=== PATIENT | female | born 1960 | race Caucasian/White ===

== ENCOUNTER → 2017-04-02 08:05 | Outpatient (CLI) | payer BC | END | disposition home or self-care (01) | LOC: D.US 08:05 | DX: K76.0 Fatty (change of) liver, not elsewhere classified (principal); R93.8 Abnormal findings on diagnostic imaging of other specified body structures ==

== ENCOUNTER → 2017-04-03 08:50 | Outpatient (CLI) | payer BC ==
[2017-04-02 08:44] LABS: BILIRUBIN - INDIRECT 0.27 mg/dL (0.00-1.00); BILIRUBIN - TOTAL 0.32 mg/dL (0.2-1.3); PROTEIN - SERUM 7.7 g/dL (6.4-8.2)
[2017-04-02 08:46] LABS: BILIRUBIN - DIRECT 0.05 mg/dL (0.00-0.30)
== END | disposition home or self-care (01) ==
LOC: D.MRI 08:50
PROVIDERS: Internal Medicine Gastroenterology
DX: R93.8 Abnormal findings on diagnostic imaging of other specified body structures (principal); R10.30 Lower abdominal pain, unspecified

== ENCOUNTER → 2017-07-01 07:38 | Outpatient (CLI) | payer BC | END | disposition home or self-care (01) | LOC: D.MRI 07:38 | DX: K76.9 Liver disease, unspecified (principal); R93.8 Abnormal findings on diagnostic imaging of other specified body structures ==

== ENCOUNTER → 2017-12-24 08:21 | Outpatient (CLI) | payer BC | END | disposition home or self-care (01) | LOC: D.MRI 08:21 | DX: R93.89 Abnormal findings on diagnostic imaging of other specified body structures (principal); K76.89 Other specified diseases of liver; K58.9 Irritable bowel syndrome, unspecified; R12 Heartburn ==

== ENCOUNTER → 2018-01-02 08:08 | Outpatient (CLI) | payer BC | END | disposition home or self-care (01) | LOC: D.MRI 08:00 | DX: R93.89 Abnormal findings on diagnostic imaging of other specified body structures (principal); K76.9 Liver disease, unspecified ==

== ENCOUNTER → 2019-01-01 07:57 | Outpatient (CLI) | payer BC | END | disposition home or self-care (01) | LOC: D.MRI 07:57 | PROVIDERS: ATTEND Internal Medicine Gastroenterology | DX: K76.9 Liver disease, unspecified (principal); Z09 Encounter for follow-up examination after completed treatment for conditions other than malignant neoplasm ==

== ENCOUNTER → 2019-06-30 07:46 | Outpatient (CLI) | payer BC ==
[2019-06-30 08:26] LABS: ALBUMIN 3.9 g/dL (3.4-5.0); BILIRUBIN - DIRECT 0.06 mg/dL (0.00-0.30); BILIRUBIN - INDIRECT 0.11 mg/dL (0.00-1.00); BILIRUBIN - TOTAL 0.17 mg/dL (0.2-1.3); PROTEIN - SERUM 7.9 g/dL (6.4-8.2)
== END | disposition home or self-care (01) ==
LOC: D.LAB 07:46 → D.US 08:30
PROVIDERS: ATTEND Internal Medicine Gastroenterology
DX: K76.0 Fatty (change of) liver, not elsewhere classified (principal)

== ENCOUNTER → 2020-06-28 09:17 | Outpatient (CLI) | payer BC ==
[2020-06-28 10:05] LABS: BILIRUBIN - DIRECT 0.09 mg/dL (0.00-0.30); BILIRUBIN - INDIRECT 0.15 mg/dL (0.00-1.00); BILIRUBIN - TOTAL 0.24 mg/dL (0.2-1.3); PROTEIN - SERUM 8.1 g/dL (6.4-8.2)
== END | disposition home or self-care (01) ==
LOC: D.LAB 08:00 → D.US 09:30
PROVIDERS: ATTEND Internal Medicine Gastroenterology
DX: K76.0 Fatty (change of) liver, not elsewhere classified (principal)